=== PATIENT | male | born 1970 | race Caucasian/White ===

== ENCOUNTER 2019-03-10 09:39 | Emergency (ER) | payer BC ==
[2019-03-10 10:08] VITALS: BP 134/94
--- NOTE | 2019-03-10 10:39 | UC ---
Respiratory Complaint HPI - HPI Summary HPI Summary: 48 y/o male presents to the urgent care c/o nasal congestion w/ clear nasal discharge, sore throat, BURROUGHS, body aches, fever and chills since 2019. He states yesterday he developed a dry cough w/ a fever of 102F. He took Tylenol and symptoms resolved. He wants to make sure he doesn't have the flu since many co-worker are sick. He states pain w/ swallowing 08/14. He has been eating well and drinking fluids. He denies fever today, SOB, chest pain, abdominal pain, N/V/d. - History of Current Complaint Chief Complaint: UCGeneralIllness Stated Complaint: FEVER, COUGH Time Seen by Provider: 03/10/19 10:27 Hx Obtained From: Patient Onset/Duration: Gradual Onset, Lasting Days - 3 days, Still Present, Worse Since - last night w/ fever Timing: Constant Severity Initially: Mild Severity Currently: Moderate Pain Intensity: 7 - sore throat Pain Scale Used: 0-10 Numeric Character: Cough: Nonproductive Aggravating Factors: Recumbent Position Alleviating Factors: OTC Meds - tylenol PO Associated Signs And Symptoms: Positive: Fever - 102F last night, Chills, URI, Nasal Congestion. Negative: Wheezing, Hemoptysis, Dizziness - Risk Factors Pulmonary Embolism Risk Factors: Negative Cardiac Risk Factors: Negative Pseudomonas Risk Factors: Negative Tuberculosis Risk Factors: Negative - Allergies/Home Medications Allergies/Adverse Reactions: Allergies Allergy/AdvReac Type Severity Reaction Status Date / Time No Known Allergies Allergy Verified 03/10/19 10:00 Home Medications: Home Medications Albuterol HFA INHALER* [Ventolin HFA Inhaler*] 1 puff INH Q4H PRN 03/10/19 [ History Confirmed 03/10/19] Ixekizumab [Taltz Autoinjector] 80 mg SQ MONTHLY 03/10/19 [History Confirmed 04/24] Lisinopril/Hydrochlorothiazide [Lisinopril-Hctz 20-25 mg Tab] 1 each PO DAILY [History Confirmed 03/10/19] Omeprazole 20 mg PO DAILY 03/10/19 [History Confirmed 03/10/19] PMH/Surg Hx/FS Hx/Imm Hx Previously Healthy: Yes Other Endocrine History: Psoriatic arthritis Cardiovascular History: Hypertension GI/ History: Gastroesophageal Reflux - Surgical History Surgical History: Yes Surgery Procedure, Year, and Place: Right Knee Arthroscopy - Family History Known Family History: Positive: Hypertension - Social History Occupation: Employed Full-time Lives: With Family Alcohol Use: Daily Alcohol Amount: 2-3 a day wine or liquor Substance Use Type: None Smoking Status (MU): Former Smoker Type: Cigarettes Length of Time of Smoking/Using Tobacco: 14 years When Did the Patient Quit Smoking/Using Tobacco: 2010 - Immunization History Most Recent Influenza Vaccination: 11/20 Review of Systems All Other Systems Reviewed And Are Negative: Yes Constitutional: Positive: Fever, Chills, Fatigue, Other - body aches Eyes: Positive: Negative ENT: Positive: Sore Throat, Nasal Discharge - clear, Sinus Congestion Respiratory: Positive: Cough - dry Cardiovascular: Positive: Negative Gastrointestinal: Positive: Negative Genitourinary: Positive: Negative Motor: Positive: Negative Neurovascular: Positive: Negative Musculoskeletal: Positive: Myalgia Neurological: Positive: Headache Psychological: Positive: Negative Is Patient Immunocompromised?: No Physical Exam - Summary Physical Exam Summary: VITAL SIGNS: Reviewed. GENERAL: Patient is a well developed and nourished obese male who is sitting comfortably in the examining table. Patient is not in any acute respiratory distress. HEAD AND FACE: No signs of trauma. No ecchymosis, hematomas or skull depressions. No sinus tenderness. EYES: PERRLA, EOMI x 2, No injected conjunctiva, no nystagmus. No photophobia. EARS: Hearing grossly intact. Ear canals and tympanic membranes are within normal limits. MOUTH: Positive pharynx with mild erythema, no exudates, No B/L tonsillar enlargement , no exudate. Uvula in midline. edematous nasal mucosa w/ clear nasal discharge, clear PND NECK: Supple, trachea is midline, Positive anterior cervical lymphadenopathy, no JVD, no carotid bruit, no c-spine tenderness, neck with full ROM. No meningeal signs, no Kernig's or brudzinskis signs. CHEST: Symmetric, no tenderness at palpation LUNGS: Clear to auscultation bilaterally. No wheezing or crackles. CVS: Regular rate and rhythm, S1 and S2 present, no murmurs or gallops appreciated. ABDOMEN: Soft, non-tender. No signs of distention. No rebound no guarding, and no masses palpated. Bowel sounds are normal. EXTREMITIES: FROM in all major joints, no edema, no cyanosis or clubbing. NEURO: Alert and oriented x 3. No acute neurological deficits. Pt follows commands. SKIN: Dry and warm Triage Information Reviewed: Yes Vital Signs: Initial Vital Signs Temp 98.5 F 03/10/19 10:04 Pulse 102 03/10/19 10:04 Resp 18 03/10/19 10:04 BP 134/94 03/10/19 10:04 Pulse Ox 98 03/10/19 10:04 Respiratory Course/Dx - Course Course Of Treatment: 48 y/o male presents to the urgent care c/o nasal congestion w/ clear nasal discharge, sore throat, BURROUGHS, body aches, fever and chills since 2019. He states yesterday he developed a dry cough w/ a fever of 102F. He took Tylenol and symptoms resolved. He wants to make sure he doesn't have the flu since many co-worker are sick. He states pain w/ swallowing 08/14. He has been eating well and drinking fluids. He denies fever today, SOB, chest pain, abdominal pain, N/V/d. Hx obtained. Pt with URI on examination. Rapid strep ordered, result: negative.Influenza A&B ordered: result:negative. Pt Rx Tessalon tabs PO to alleviate cough and advised to continue taking Tylenol PO to alleviates symptoms. Advised on hand washing and wear a mask to avoid spreading. Pt advised to rest, increase fluid intake, eat well and avoid strenuous exercise. Pt's BP is elevated today advised to decrease salt in diet, monitor BP and f/u with PCP for further management.If symptoms do not improve or worsen advised to return to the urgent care or f/u with her PCP for further evaluation and treatment. Pt understood and agreed - Differential Dx/Diagnosis Differential Diagnosis/HQI/PQRI: Asthma, Bronchitis, Influenza, Laryngitis, Lower Resp Infection, Sinusitis Provider Diagnosis: Upper respiratory infection, Cough, Uncontrolled hypertension Discharge ED - Sign-Out/Discharge Documenting (check all that apply): Patient Departure - D/C sae All imaging exams completed and their final reports reviewed: No Studies - Discharge Plan Condition: Stable Disposition: HOME Prescriptions: Benzonatate CAP* [Tessalon 100 MG CAP*] 100 mg PO TID #21 cap Patient Education Materials: Upper Respiratory Infection (ED) Forms: *Work Release Referrals: Klaus Ordonez MD [Primary Care Provider] - 2 Days Additional Instructions: 1-Please take Tessalon PO as directed to alleviate cough. 2-Please continue taking Tylenol PO q6-8hrs prn as instructed after meals to alleviate fever, and sore throat. Increase fluid intake, eat well, rest and avoid strenuous exercise 3-If symptoms do not improve or worsen please return to the urgent care or f/u with your PCP in 2-3 days for further evaluation and treatment. 4-Your BP is elevated today advised to decrease salt in diet, monitor BP and f/ u with PCP for further management. - Billing Disposition and Condition Condition: STABLE Disposition: Home
[2019-03-10 10:56] LABS: Influenza A Molecular Negative (Negative); Influenza B Molecular Negative (Negative)
== END 2019-03-10 11:16 | disposition home or self-care (01) ==
LOC: UCEAST 09:39
DX: J06.9 Acute upper respiratory infection, unspecified (principal); R05 Cough; I10 Essential (primary) hypertension; K21.9 Gastro-esophageal reflux disease without esophagitis; L40.50 Arthropathic psoriasis, unspecified; Z87.891 Personal history of nicotine dependence; Z79.899 Other long term (current) drug therapy
CPT/HCPCS: 87651; 99212; G0463

== ENCOUNTER 2024-01-18 06:37 | Observation (INO) ==
[~2024-01-18 06:37] MED LIST: Metoclopramide 5 MG/ML VIAL (10 mg) IV PRN; NS 0.45% 1000 ml BAG 1,000 ML IV SCH; Naloxone 0.4 mg VIAL 0.4 mg/ml 1 ml VIAL IV PRN; Ondansetron 4 mg VIAL 2 MG/ML 2 ml VIAL IV PRN; fentaNYL 100 mcg/2 ml 50 MCG/ML VIAL IV PRN
[2024-01-18] MEDS ORDERED: ROPIVACAINE 5 MG/ML 30 ML BTL (0.5%) ONE ×2 (06:42→07:19)
[2024-01-18] MEDS ORDERED: Tranexamic Acid 1 GM/100ML BAG 2,000 MG/200 ML BAG IV ONE (06:58)
[2024-01-18] MEDS ORDERED: ceFAZolin *3* GM in NS PREMIX 3 GM/100 ML BAG IV ONE (06:58)
[2024-01-18 07:16] LABS: Rapid COVID-19 Molecular Undetected (Undetected)
[2024-01-18] MEDS ORDERED: Dexamethasone IV 4 MG/ML VIAL 1 ml VIAL ONE ×2 (07:19→09:20)
[2024-01-18] MEDS ORDERED: Midazolam 2 mg/2 ml VIAL 1 mg/ml 2 ml VIAL (2 mg) ONE (07:19)
[2024-01-18] MEDS ORDERED: fentaNYL 100 mcg/2 ml 50 MCG/ML VIAL ONE (07:19)
[2024-01-18] MEDS: Buffered Lidocaine 1% SYRIN 1 ml INTRADERM ONE (07:22)
[2024-01-18] MEDS: Scopolamine 1 mg/72hr PATCH TRANSDERM ONE (07:22)
[2024-01-18] MEDS: Lactated Ringers 1000 ml BAG 1,000 ML IV SCH ×2 (07:22→15:53)
[2024-01-18] MEDS ORDERED: Phenylephrine IV 10 MG/ML 1 ml VIAL ONE (07:24)
[2024-01-18] MEDS ORDERED: Lidocaine 2% PF 5 ML VIAL ONE (07:24)
[2024-01-18] MEDS ORDERED: KETAMINE HCL 10 MG/ML 20 ml VIAL (200 MG) ONE (09:12)
[2024-01-18] MEDS ORDERED: Ondansetron 4 mg VIAL 2 MG/ML 2 ml VIAL ONE (09:20)
[2024-01-18] MEDS ORDERED: Propofol 10 MG/ML 20 ML BTL ONE ×3 (09:45→11:02)
[2024-01-18] MEDS ORDERED: Morphine 2 MG/ML SYRINGE IV PRN (11:28)
[2024-01-18] MEDS ORDERED: Lactulose 30 ml UDC PO PRN (11:28)
[2024-01-18] MEDS ORDERED: Calcium Carb (TUMS) 500 mg CHEW TAB PO PRN (11:28)
[2024-01-18] MEDS ORDERED: Magnesium Hydroxide LIQ 30 ML UDC PO PRN (11:28)
[2024-01-18] MEDS: Acetaminophen IV 1 GM/100ML 1,000 MG/100 ML BAG IV ONE (16:34)
[2024-01-18] MEDS: Ondansetron 4 mg VIAL 2 MG/ML 2 ml VIAL IV PRN (17:10)
[2024-01-18] MEDS: ceFAZolin *3* GM in NS PREMIX 3 GM/100 ML BAG IV SCH (17:21)
[2024-01-18] MEDS ORDERED: Dextrose 50% Syringe 50 ml 25 GM/50 ML SYRINGE IV PUSH PRN (17:47)
[2024-01-18] MEDS: Magnesium Hydroxide LIQ 30 ML UDC PO SCH (21:35)
[2024-01-19 06:21] LABS: Hematocrit 39.3 % (38-53); Hemoglobin 13.7 g/dL (13.2-16.3); Mean Platelet Volume 9.4 fL (7.5-11.2); Platelet Count 185 10^3/uL (150-450)
[2024-01-19 06:42] LABS: Calcium 8.6 mg/dL (8.6-10.3); Creatinine, Serum 0.94 mg/dL (0.67-1.17); Magnesium 2.3 mg/dL (1.9-2.7); Potassium 4.6 mmol/L (3.5-5.0); eGFR CKD-EPI 98.1 (>60)
[2024-01-19] MEDS: Ondansetron ODT 4 mg TAB 4 MG TAB PO PRN (07:50)
[2024-01-19] MEDS ORDERED: Lisinopril/HCTZ 20/12.5 TB(NF) PO SCH (09:00)
[2024-01-19] MEDS: Vitamin THERAPEUTIC TAB PO SCH (09:21)
[2024-01-19 10:00] VITALS: BP 128/84
== END 2024-01-19 12:45 | disposition home or self-care (01) ==
LOC: SSU 06:37 → OR 06:37
PROVIDERS: ADMIT Orthopaedic Surgery Adult Reconstructive Orthopaedic Surgery; ATTEND Orthopaedic Surgery Adult Reconstructive Orthopaedic Surgery